=== PATIENT | male | born 1930 ===

== ENCOUNTER 2017-12-11 22:48 | Emergency (ER) | payer SELFPAY | END 2017-12-11 23:30 | disposition home or self-care (01) | LOC: E/R 22:48 | DX: Z43.1 Encounter for attention to gastrostomy (principal); I10 Essential (primary) hypertension; E66.9 Obesity, unspecified; E11.9 Type 2 diabetes mellitus without complications | CPT/HCPCS: 43760; 93005; 99284-25 ==